=== PATIENT | male | born 1965 | race Caucasian/White ===

== ENCOUNTER 2023-09-13 03:15 | Emergency (ER) | payer BC, OTHER ==
[2023-09-13] MEDS: Ondansetron 4 MG/2 ML SDV IVPUSH ONE (03:39)
[2023-09-13] MEDS: Sodium Chloride 0.9% 1,000 ML IV ONE (03:39)
[2023-09-13] MEDS: Morphine 2 MG/ML SYRINGE IVPUSH ONE ×2 (03:42→04:03)
[2023-09-13] MEDS: Sodium Chloride 0.9% 10 ML Syringe FLUSH PRN (04:04)
[2023-09-13 04:23] LABS: APPEARANCE,URINE CLEAR; BILIRUBIN,URINE NEGATIVE (NEGATIVE); COLOR,URINE YELLOW; GLUCOSE,URINE NEGATIVE (NEGATIVE); KETONES,URINE TRACE mg/dL (NEGATIVE); LEUKOCYTE ESTERASE,URINE SMALL (NEGATIVE); NITRITE,URINE NEGATIVE (NEGATIVE); OCCULT BLOOD,URINE LARGE (NEGATIVE); PROTEIN,URINE 100 mg/dL (NEGATIVE); UROBILINOGEN,URINE 0.2 E.U./dL (0.2-1.0)
[2023-09-13 04:32] LABS: BACTERIA,URINE FEW /HPF (NONE TO FEW); RBC,URINE 40-50 /HPF
[2023-09-13] MEDS: fentaNYL 50 MCG/ML SDV IVPUSH ONE (04:38)
[2023-09-13 06:04] VITALS: BP 168/97; PULSE 75
[2023-09-13] MEDS: Take Home: Acetaminophen/HYDROcodone 325-10 MG, 5 Tab Pack PO ONE (06:22)
== END 2023-09-13 06:30 | disposition home or self-care (01) ==
LOC: LL.ED 03:15
DX: N13.2 Hydronephrosis with renal and ureteral calculous obstruction (principal); R59.1 Generalized enlarged lymph nodes; I10 Essential (primary) hypertension; Z88.5 Allergy status to narcotic agent; Z88.6 Allergy status to analgesic agent; Z79.899 Other long term (current) drug therapy; Z90.49 Acquired absence of other specified parts of digestive tract
CPT/HCPCS: 74176; 81001; 87086; 96374; 96375; 99284-25; A9270-GY; J2270; J2405; J3010; J3490; J7030